=== PATIENT | male | born 1995 | race Caucasian/White ===

== ENCOUNTER 2017-07-02 00:01 | Emergency (ER) | payer OTHER ==
[2017-07-02 00:17] VITALS: BP 146/83; PULSE 95; RESP 16; TEMP 97.6; O2SAT 98
--- NOTE | 2017-07-02 03:10 | PD ---
HPI Chief Complaint: OD/ Ingestion Time Seen by Provider: 00:14 Travel History International Travel<30 days: No Contact w/Intl Traveler<30days: No Traveled to known affect area: No History of Present Illness HPI Patient is a 21-year-old male brought in by EMS after heroin overdose. He was given Narcan and awoke. He says he often uses heroin. He denies any complaints. He is angry he is here. He denies chest pain, fever, chills. He would like to leave. Severity is mild. [facility] Past Medical History Medical History: Denies Significant Hx Diminished Hearing: No Tetanus Vaccination: < 5 Years Past Surgical History Other Surgery: Yes (TO CLOSE LAC TO JAW) Social History Alcohol Use: Yes Tobacco Use: Yes Substance Use: Yes (COKE, HEROIN, MARIJUANA ) Allergies-Medications (Allergen,Severity, Reaction): Coded Allergies: No Known Allergies (Unverified , 07/02/17) Reported Meds & Prescriptions Reported Meds & Active Scripts Active No Active Prescriptions or Reported Medications Review of Systems Except as stated in HPI: all other systems reviewed are Neg General / Constitutional: No: Fever, Chills HENT: No: Headaches, Lightheadedness Cardiovascular: No: Chest Pain or Discomfort Respiratory: No: Shortness of Breath Gastrointestinal: No: Nausea, Vomiting Skin: No Rash, No Change in Pigmentation Neurologic: No: Weakness, Dizziness Physical Exam Narrative GENERAL: Awake and alert, in no acute distress. SKIN: Focused skin assessment warm/dry. HEAD: Atraumatic. Normocephalic. EYES: Pupils equal and round. No scleral icterus. EOMI. ENT: Mucous membranes pink and moist. NECK: Trachea midline. No JVD. CARDIOVASCULAR: Regular rate and rhythm. No murmur appreciated. RESPIRATORY: No accessory muscle use. Clear to auscultation. Breath sounds equal bilaterally. GASTROINTESTINAL: Abdomen soft, non-tender, nondistended. MUSCULOSKELETAL: No obvious deformities. No clubbing. No cyanosis. No edema. NEUROLOGICAL: Awake and alert. No obvious cranial nerve deficits. Motor grossly within normal limits. Normal speech. PSYCHIATRIC: Appropriate mood and affect; insight and judgment normal. Data Data Last Documented VS Vital Signs Date Time Temp Pulse Resp B/P (MAP) Pulse Ox O2 Delivery O2 Flow Rate FiO2 07/02/17 00:17 97.6 95 16 146/83 (104) 98 MDM Medical Decision Making Medical Screen Exam Complete: Yes Emergency Medical Condition: Yes Medical Record Reviewed: Yes Differential Diagnosis heroine overdose vs intoxication vs dehydration Narrative Course Patient is a 21-year-old male brought in by EMS after heroin overdose. He has no complaints. He was given Narcan. He was observed in the emergency department without any further hypoxic episodes. He remained awake and alert. Discharged home. Advised to quit using drugs. Diagnosis Primary Impression: Heroin overdose Qualified Codes: T40.1X1A - Poisoning by heroin, accidental (unintentional), initial encounter Patient Instructions: General Instructions, Opioid Overdose (ED) Additional Instructions: Stop using drugs. Drink plenty of fluids. Return to the ED as needed for any worsening symptoms. Scripts No Active Prescriptions or Reported Meds Disposition: 01 DISCHARGE HOME Condition: Stable Lexy Dyer MD Jul 02, 2017 03:10
== END 2017-07-02 03:17 | disposition home or self-care (01) ==
LOC: NEPE 00:01
DX: T40.1X1A Poisoning by heroin, accidental (unintentional), initial encounter (principal)
CPT/HCPCS: 99281

== ENCOUNTER 2017-07-19 09:24 | Inpatient (IN) | payer MEDICAID, OTHER ==
[~2017-07-19] VITALS: Ht 172.7 cm; Wt 70.1 kg
[2017-07-19] VITALS (7 sets, daily range): BP systolic 110–154; BP diastolic 51–80; PULSE 82–114; RESP 16–20; TEMP 96.6–99.8; O2SAT 93–98
[2017-07-19] MEDS ORDERED: VANCOMYCIN INJ 1,000 MG in SODIUM CHLOR 0.9% 250 ML INJ 250 ML IV STA (09:49)
[2017-07-19] MEDS ORDERED: PIPERACIL-TAZO 4.5 GM PREMIX 100 ML IV STA (09:49)
--- NOTE | 2017-07-19 09:58 | PD ---
HPI Chief Complaint: Injury Time Seen by Provider: 09:48 Travel History International Travel<30 days: No Contact w/Intl Traveler<30days: No Traveled to known affect area: No History of Present Illness HPI This 22-year-old male is complaining of pain in his right foot. 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 He says he went quite deep into his foot took some pulling to get them out of his foot. He says when he got up this morning the foot was quite painful and he has trouble walking on it. He was in the emergency department on July 02 with an overdose of heroin. He admits to drug use but denies recent IV drug use. PFSH Past Medical History Diminished Hearing: No Past Surgical History Other Surgery: Yes (TO CLOSE LAC TO JAW) Social History Alcohol Use: Yes Tobacco Use: Yes Substance Use: Yes (COKE, HEROIN, MARIJUANA ) Allergies-Medications (Allergen,Severity, Reaction): Coded Allergies: No Known Allergies (Unverified , 07/19/17) Reported Meds & Prescriptions Reported Meds & Active Scripts Active No Active Prescriptions or Reported Medications Review of Systems General / Constitutional: Positive: Chills Eyes: No: Diploplia HENT: No: Headaches Cardiovascular: No: Chest Pain or Discomfort, Palpitations Respiratory: No: Cough, Shortness of Breath Gastrointestinal: No: Vomiting, Diarrhea Genitourinary: No: Urgency, Frequency Musculoskeletal: Positive: Pain Skin: No Rash, No Itching Neurologic: No: Weakness Endocrine: No: Heat Intolerance, Cold Intolerance Hematologic/Lymphatic: No: Easy Bruising Physical Exam Narrative GENERAL: Disheveled male SKIN: Focused skin assessment warm/dry. Track hurley present. Multiple erythematous pustular lesions which he says are from moving fiberglass HEAD: Atraumatic. Normocephalic. EYES: Pupils equal and round. No scleral icterus. No injection or drainage. ENT: No nasal bleeding or discharge. Mucous membranes pink and moist. NECK: Trachea midline. No JVD. CARDIOVASCULAR: Regular rate and rhythm. No murmur appreciated. RESPIRATORY: No accessory muscle use. Clear to auscultation. Breath sounds equal bilaterally. GASTROINTESTINAL: Abdomen soft, non-tender, nondistended. Hepatic and splenic margins not palpable. MUSCULOSKELETAL: No obvious deformities. No clubbing. No cyanosis. No edema. Examining the right foot there are multiple puncture wounds visible. There are quite tender. He has erythema and lymphangitis extending up the foot NEUROLOGICAL: Awake and alert. No obvious cranial nerve deficits. Motor grossly within normal limits. Normal speech. PSYCHIATRIC: Anxious, judgment is limited Data Data Last Documented VS Vital Signs Date Time Temp Pulse Resp B/P (MAP) Pulse Ox O2 Delivery O2 Flow Rate FiO2 07/19/17 11:12 97 Room Air 07/19/17 09:30 99.8 114 16 154/80 (104) Orders Orders Foot, Complete ([id number]) (07/19/17 09:49) Sepsis Workup Initiated (07/19/17 ) Complete Blood Count With Diff (07/19/17 09:49) Comprehensive Metabolic Panel (07/19/17 09:49) Lactic Acid Sepsis Protocol (07/19/17 09:49) Urinalysis - C+S If Indicated (07/19/17 09:49) Blood Culture (07/19/17 09:49) Wound Culture And Gram Stain (07/19/17 09:49) Chest, Single Ap (07/19/17 09:49) Ecg Monitoring (07/19/17 09:49) Iv Access Insert/Monitor (07/19/17 09:49) Oximetry (07/19/17 09:49) Oxygen Administration (07/19/17 09:49) Piperacil-Tazo 4.5 Gm Premix (Zosyn 4.5 (07/19/17 09:49) Vancomycin Inj (Vancomycin Inj) (07/19/17 09:49) Lidocaine 2% Inj (Xylocaine 2% Inj) (07/19/17 11:15) Labs Laboratory Tests Test 07/19/17 10:35 White Blood Count 14.4 TH/MM3 Red Blood Count 4.88 MIL/MM3 Hemoglobin 14.9 GM/DL Hematocrit 44.1 % Mean Corpuscular Volume 90.4 FL Mean Corpuscular Hemoglobin 30.5 PG Mean Corpuscular Hemoglobin Concent 33.7 % Red Cell Distribution Width 13.1 % Platelet Count 293 TH/MM3 Mean Platelet Volume 7.8 FL Neutrophils (%) (Auto) 72.9 % Lymphocytes (%) (Auto) 12.9 % Monocytes (%) (Auto) 12.3 % Eosinophils (%) (Auto) 1.1 % Basophils (%) (Auto) 0.8 % Neutrophils # (Auto) 10.4 TH/MM3 Lymphocytes # (Auto) 1.9 TH/MM3 Monocytes # (Auto) 1.8 TH/MM3 Eosinophils # (Auto) 0.2 TH/MM3 Basophils # (Auto) 0.1 TH/MM3 CBC Comment DIFF FINAL Differential Comment Blood Urea Nitrogen 9 MG/DL Creatinine 1.00 MG/DL Random Glucose 102 MG/DL Total Protein 7.9 GM/DL Albumin 3.8 GM/DL Calcium Level 9.1 MG/DL Alkaline Phosphatase 88 U/L Aspartate Amino Transf (AST/SGOT) 36 U/L Alanine Aminotransferase (ALT/SGPT) 67 U/L Total Bilirubin 0.9 MG/DL Sodium Level 135 MEQ/L Potassium Level 3.4 MEQ/L Chloride Level 100 MEQ/L Carbon Dioxide Level 29.8 MEQ/L Anion Gap 5 MEQ/L Estimat Glomerular Filtration Rate 95 ML/MIN Lactic Acid Level 1.0 mmol/L MDM Medical Decision Making Medical Screen Exam Complete: Yes Emergency Medical Condition: Yes Medical Record Reviewed: Yes Differential Diagnosis Differential includes cellulitis, lymphangitis, sepsis Narrative Course IND of the puncture wounds has been done and some pus has been obtained. Patient has temp of 99.8 pulse rate of 114. He has lymphangitis. Diagnosis Primary Impression: Cellulitis of foot Scripts No Active Prescriptions or Reported Meds Librado Bowling MD Jul 19, 2017 09:58
--- NOTE | 2017-07-19 10:29 | RADRPT ---
EXAM DATE/TIME: 07/19/2017 09:57 [facility] COMPARISON: No previous studies available for comparison. INDICATIONS : Fever. Possible foot infection after stepping on multiple nails yesterday. MEDICAL HISTORY : None. SURGICAL HISTORY : None. ENCOUNTER: Initial ACUITY: 2 days PAIN SCORE: 0/10 LOCATION: chest FINDINGS: A single view of the chest demonstrates the lungs to be symmetrically aerated without evidence of mas s, infiltrate or effusion. The cardiomediastinal contours are unremarkable. Osseous structures are intact. CONCLUSION: The lungs are clear. J Luis Wilkerson MD on July 19, 2017 at 10:27 Board Certified Radiologist. This report was verified electronically.
--- NOTE | 2017-07-19 10:35 | RADRPT ---
EXAM DATE/TIME: 07/19/2017 09:57 [facility] COMPARISON: No previous studies available for comparison. INDICATIONS : Right foot pain & possible foot infection after stepping on multiple nails yesterday. MEDICAL HISTORY : None. SURGICAL HISTORY : None. ENCOUNTER: Initial ACUITY: 2 days PAIN SCORE: 10/10 LOCATION: Right plantar surface foot FINDINGS: Three view examination of the right foot demonstrates no soft tissue swelling, dislocation, or fractu re. No evidence of periosteal reaction. The tarsal bones appear intact. The interphalangeal and m etatarsophalangeal joints are intact. The calcaneus is intact. Bony mineralization is normal. No r adiopaque foreign bodies seen. CONCLUSION: Negative examination. J Luis Wilkerson MD on July 19, 2017 at 10:32 Board Certified Radiologist. This report was verified electronically.
[2017-07-19 10:50] LABS: AUTOMATED NEUTROPHIL # 10.4 TH/MM3 (1.8-7.7); BASOPHIL # 0.1 TH/MM3 (0-0.2); BASOPHIL % 0.8 % (0.0-2.0); EOSINOPHIL # 0.2 TH/MM3 (0-0.4); EOSINOPHIL % 1.1 % (0.0-4.0); HEMATOCRIT 44.1 % (39.0-51.0); HEMOGLOBIN 14.9 GM/DL (13.0-17.0); LYMPH % 12.9 % (9.0-44.0); LYMPHOCYTE # 1.9 TH/MM3 (1.0-4.8); MEAN CELL VOLUME 90.4 FL (80.0-100.0); MEAN CORPUSCULAR HEMOGLOBIN 30.5 PG (27.0-34.0); MEAN CORPUSCULAR HGB CONC 33.7 % (32.0-36.0); MEAN PLATELET VOLUME 7.8 FL (7.0-11.0); MONO % 12.3 % (0.0-8.0); MONOCYTE # 1.8 TH/MM3 (0-0.9); NEUT % 72.9 % (16.0-70.0); PLATELET COUNT 293 TH/MM3 (150-450); RED BLOOD COUNT 4.88 MIL/MM3 (4.50-5.90); RED CELL DISTRIBUTION WIDTH 13.1 % (11.6-17.2); WHITE BLOOD COUNT 14.4 TH/MM3 (4.0-11.0)
[2017-07-19 10:57] LABS: CHLORIDE 100 MEQ/L (98-107); SODIUM (NA) 135 MEQ/L (136-145)
[2017-07-19 11:00] LABS: ALBUMIN 3.8 GM/DL (3.4-5.0); BICARBONATE 29.8 MEQ/L (21.0-32.0); CALCIUM 9.1 MG/DL (8.5-10.1); GLUCOSE,RANDOM 102 MG/DL (74-106)
[2017-07-19 11:01] LABS: BLOOD UREA NITROGEN 9 MG/DL (7-18)
[2017-07-19 11:04] LABS: ALT (GPT) 67 U/L (9-52); AST (GOT) 36 U/L (15-39); GLOMERULAR FILTRATION RATE 95 ML/MIN (>89)
[2017-07-19 11:05] LABS: TOTAL BILIRUBIN ADULT 0.9 MG/DL (0.2-1.0); TOTAL PROTEIN 7.9 GM/DL (6.4-8.2)
[2017-07-19 11:06] LABS: ALKALINE PHOSPHATASE 88 U/L (45-117)
[2017-07-19] MEDS ORDERED: LIDOCAINE HCL 2% 50 ML VIAL NERV BLOCK ONE (11:15)
[2017-07-19] MEDS ORDERED: TETANUS/DIPHTHERIA TOXOID ADULT 0.5 ML VIAL IM ONE (11:30)
--- NOTE | 2017-07-19 11:30 | PD ---
Physical Exam Date Seen by Provider: Jul 19, 2017 Narrative I was asked to perform an incision and drainage of this patient's right foot. There were 2 areas of questionable abscesses. There was no spontaneous draining. The largest of the areas was under the 2nd metatarsal. INCISION AND DRAINAGE OF ABSCESS: The area located on plantar aspects under fifth metatarsal was prepped and was sterilely draped. A subcutaneous wheal of 2% Xylocaine without epinephrine with a total number 1 mL was used to anesthetize the area properly. A number 11 scalpel was used to make a 0.5-cm incision across the area of the abscess. The abscess was drained, complex loculations were broken down, and irrigated with normal saline. Cultures were obtained. Quarter inch iodoform packing was placed in the wound. Sterile dressing applied. Patient advised to have packing removed in two days. INCISION AND DRAINAGE OF ABSCESS: The area plantar aspect of 2nd metatarsal was prepped and was sterilely draped. A subcutaneous wheal of 2 % Xylocaine without epinephrine with a total number 1 mL was used to anesthetize the area properly. A number 11 scalpel was used to make a 1-cm incision across the area of the abscess. There was no fluid expression here. This was a rather thick callus. I was able to remove the remnants from a nail (dirt vs rust). Data Data Last Documented VS Vital Signs Date Time Temp Pulse Resp B/P (MAP) Pulse Ox O2 Delivery O2 Flow Rate FiO2 07/19/17 11:12 98.7 98 16 114/54 (74) 97 Room Air Orders Orders Foot, Complete ([id number]) (07/19/17 09:49) Sepsis Workup Initiated (07/19/17 ) Complete Blood Count With Diff (07/19/17 09:49) Comprehensive Metabolic Panel (07/19/17 09:49) Lactic Acid Sepsis Protocol (07/19/17 09:49) Urinalysis - C+S If Indicated (07/19/17 09:49) Blood Culture (07/19/17 09:49) Wound Culture And Gram Stain (07/19/17 09:49) Chest, Single Ap (07/19/17 09:49) Ecg Monitoring (07/19/17 09:49) Iv Access Insert/Monitor (07/19/17 09:49) Oximetry (07/19/17 09:49) Oxygen Administration (07/19/17 09:49) Piperacil-Tazo 4.5 Gm Premix (Zosyn 4.5 (07/19/17 09:49) Vancomycin Inj (Vancomycin Inj) (07/19/17 09:49) Lidocaine 2% Inj (Xylocaine 2% Inj) (07/19/17 11:15) Tetanus/Diphtheria Tox Adult (Tetanus/Di (07/19/17 11:30) Admit Order (Ed Use Only) (07/19/17 11:29) Labs Laboratory Tests Test 07/19/17 10:35 White Blood Count 14.4 TH/MM3 Red Blood Count 4.88 MIL/MM3 Hemoglobin 14.9 GM/DL Hematocrit 44.1 % Mean Corpuscular Volume 90.4 FL Mean Corpuscular Hemoglobin 30.5 PG Mean Corpuscular Hemoglobin Concent 33.7 % Red Cell Distribution Width 13.1 % Platelet Count 293 TH/MM3 Mean Platelet Volume 7.8 FL Neutrophils (%) (Auto) 72.9 % Lymphocytes (%) (Auto) 12.9 % Monocytes (%) (Auto) 12.3 % Eosinophils (%) (Auto) 1.1 % Basophils (%) (Auto) 0.8 % Neutrophils # (Auto) 10.4 TH/MM3 Lymphocytes # (Auto) 1.9 TH/MM3 Monocytes # (Auto) 1.8 TH/MM3 Eosinophils # (Auto) 0.2 TH/MM3 Basophils # (Auto) 0.1 TH/MM3 CBC Comment DIFF FINAL Differential Comment Blood Urea Nitrogen 9 MG/DL Creatinine 1.00 MG/DL Random Glucose 102 MG/DL Total Protein 7.9 GM/DL Albumin 3.8 GM/DL Calcium Level 9.1 MG/DL Alkaline Phosphatase 88 U/L Aspartate Amino Transf (AST/SGOT) 36 U/L Alanine Aminotransferase (ALT/SGPT) 67 U/L Total Bilirubin 0.9 MG/DL Sodium Level 135 MEQ/L Potassium Level 3.4 MEQ/L Chloride Level 100 MEQ/L Carbon Dioxide Level 29.8 MEQ/L Anion Gap 5 MEQ/L Estimat Glomerular Filtration Rate 95 ML/MIN Lactic Acid Level 1.0 mmol/L [facility] Supervised Visit with CARMELA: Yes Diagnosis Primary Impression: Cellulitis of foot Scripts No Active Prescriptions or Reported Meds Yessy Coe Jul 19, 2017 11:30
[2017-07-19] MEDS ORDERED: SODIUM CHLOR 0.9% 1000 ML INJ 1,000 ML IV SCH (13:00)
[2017-07-19] MEDS ORDERED: Vancomycin Consult Pharmacy 1 EA OTHER SCH (13:15)
[2017-07-19] MEDS ORDERED: ACETAMINOPHEN 325 MG TAB PO PRN (13:15)
[2017-07-19] MEDS ORDERED: ONDANSETRON HCL 4 MG/2 ML VIAL IVP PRN (13:15)
[2017-07-19] MEDS ORDERED: NALOXONE HCL 0.4 MG/ML AMP IV PUSH PRN (13:15)
[2017-07-19] MEDS ORDERED: SODIUM CHLORIDE 0.9% FLUSH 10 ML FLUSH IV FLUSH PRN (13:15)
[2017-07-19] MEDS ORDERED: MAGNESIUM HYDROXIDE SUSP 30 ML CUP PO PRN (13:15)
--- NOTE | 2017-07-19 13:20 | HHI.HP ---
[facility] Service [place] [facility] Primary Care Physician No Primary Care Physician Admission Diagnosis CELLULITIS OF FOOT Diagnoses: Chief Complaint: Right foot swelling Travel History International Travel<30 Days: No Contact w/Intl Traveler <30 Da: No Traveled to Known Affected Are: No Sepsis Criteria SIRS Criteria (2 or more): Heart rate over 90, WBC > 61245, < 4000 or > 10% bands Sepsis Criteria (SIRS+source): Infect source susp/known Criteria Outcome: Meets sepsis criteria History of Present Illness This patient is a 22-year-old gentleman with a history of intravenous drug use and current history of heroin dependency. Patient comes into the emergency room complaining of right foot pain and swelling. Several days ago he stepped on nail and he thinks it went very deep. He pulled the nail out noticed that his foot began to swell and he had more pain. Came to the emergency room for further evaluation. Patient's pain is quite severe and improved with a lidocaine nerve block which was used for an I&D done in the emergency room. Patient does appear septic and has been admitted to the hospital for further evaluation and treatment Review of Systems Constitutional: COMPLAINS OF: Chills, Dizziness, Night Sweats, DENIES: Diaphoretic episodes, Fatigue, Fever, Weight gain, Weight loss, Change in appetite Endocrine: DENIES: Heat/cold intolerance, Polydipsia, Polyuria, Polyphagia Eyes: DENIES: Blurred vision, Diplopia, Eye inflammation, Eye pain, Vision loss , Photosensitivity, Double Vision Ears, nose, mouth, throat: DENIES: Tinnitus, Hearing loss, Vertigo, Nasal discharge, Oral lesions, Throat pain, Hoarseness, Ear Pain, Running Nose, Epistaxis, Sinus Pain, Toothache, Odynophagia Respiratory: DENIES: Apneas, Cough, Snoring, Wheezing, Hemoptysis, Sputum production, Shortness of breath Cardiovascular: DENIES: Chest pain, Palpitations, Syncope, Dyspnea on Exertion , PND, Lower Extremity Edema, Orthopnea, Claudication Gastrointestinal: DENIES: Abdominal pain, Black stools, Bloody stools, Constipation, Diarrhea, Nausea, Vomiting, Difficulty Swallowing, Anorexia Genitourinary: DENIES: Sexual dysfunction, Urinary frequency, Urinary incontinence, Urgency, Hematuria, Dysuria, Nocturia, Penile Discharge, Testicular Pain, Testicular Swelling Musculoskeletal: COMPLAINS OF: Joint Swelling, DENIES: Joint pain, Muscle aches , Stiffness, Back pain, Neck pain Integumentary: DENIES: Abnormal pigmentation, Nail changes, Pruritus, Rash Hematologic/lymphatic: DENIES: Bruising, Lymphadenopathy Immunologic/allergic: DENIES: Eczema, Urticaria Neurologic: DENIES: Abnormal gait, Headache, Localized weakness, Paresthesias, Seizures, Speech Problems, Tremor, Poor Balance Psychiatric: DENIES: Anxiety, Confusion, Mood changes, Depression, Hallucinations, Agitation, Suicidal Ideation, Homicidal Ideation, Delusions Except as stated in HPI: all other systems reviewed are Neg Past Family Social History Past Medical History Heroin dependence Past Surgical History Jaw surgery Reported Medications denies Allergies: Coded Allergies: No Known Allergies (Unverified , 07/19/17) Active Ordered Medications Reviewed in the EMR Family History Denies does not know Social History Uses heroin, marijuana, lives with a roommate 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 Cool and dry. HEAD: Atraumatic. Normocephalic. No temporal or scalp tenderness. EYES: Pupils equal round and reactive. Extraocular motions intact. No scleral icterus. No injection or drainage. ENT: Nose without bleeding, purulent drainage or septal hematoma. Throat without erythema, tonsillar hypertrophy or exudate. Uvula midline. Airway patent. NECK: Trachea midline. No JVD or lymphadenopathy. Supple, nontender, no meningeal signs. CARDIOVASCULAR: Regular rate and rhythm without murmurs, gallops, or rubs. RESPIRATORY: Clear to auscultation. Breath sounds equal bilaterally. No wheezes , rales, or rhonchi. GASTROINTESTINAL: Abdomen soft, non-tender, nondistended. No hepato-splenomegaly , or palpable masses. No guarding. MUSCULOSKELETAL: Right foot swelling with puncture wounds and fluctuant changes , other 3 extremities without clubbing, cyanosis, or edema. No joint tenderness , effusion, or edema noted. No calf tenderness. Negative Homans sign bilaterally. NEUROLOGICAL: Awake and alert. Cranial nerves II through XII intact. Motor and sensory grossly within normal limits. Five out of 5 muscle strength in all muscle groups. Normal speech. Laboratory Laboratory Tests Test 07/19/17 10:35 White Blood Count 14.4 Red Blood Count 4.88 Hemoglobin 14.9 Hematocrit 44.1 Mean Corpuscular Volume 90.4 Mean Corpuscular Hemoglobin 30.5 Mean Corpuscular Hemoglobin Concent 33.7 Red Cell Distribution Width 13.1 Platelet Count 293 Mean Platelet Volume 7.8 Neutrophils (%) (Auto) 72.9 Lymphocytes (%) (Auto) 12.9 Monocytes (%) (Auto) 12.3 Eosinophils (%) (Auto) 1.1 Basophils (%) (Auto) 0.8 Neutrophils # (Auto) 10.4 Lymphocytes # (Auto) 1.9 Monocytes # (Auto) 1.8 Eosinophils # (Auto) 0.2 Basophils # (Auto) 0.1 CBC Comment DIFF FINAL Differential Comment Blood Urea Nitrogen 9 Creatinine 1.00 Random Glucose 102 Total Protein 7.9 Albumin 3.8 Calcium Level 9.1 Alkaline Phosphatase 88 Aspartate Amino Transf (AST/SGOT) 36 Alanine Aminotransferase (ALT/SGPT) 67 Total Bilirubin 0.9 Sodium Level 135 Potassium Level 3.4 Chloride Level 100 Carbon Dioxide Level 29.8 Anion Gap 5 Estimat Glomerular Filtration Rate 95 Lactic Acid Level 1.0 Date/Time Source Procedure Growth Status 07/19/17 10:35 Blood Peripheral Aerobic Blood Culture Pending Received 07/19/17 10:35 Blood Peripheral Anaerobic Blood Culture Pending Received 07/19/17 11:15 Wound Foot Gram Stain Pending Received 07/19/17 11:15 Wound Foot Wound Culture Pending Received Result Diagram: 07/19/17 1035 07/19/17 1035 Imaging Last Impressions Foot X-Ray 07/19/17 6014 Signed Impressions: Service Date/Time: Wednesday, July 19, 2017 09:57 - CONCLUSION: Negative examination. J Luis Wilkerson MD Chest X-Ray 07/19/17 0949 Signed Impressions: Service Date/Time: Wednesday, July 19, 2017 09:57 - CONCLUSION: The lungs are clear. J Luis Wilkerson MD Septic Shock Reassessment Septic shock perfusion: reassessment completed Caprini VTE Risk Assessment Caprini VTE Risk Assessment: No/Low Risk (score <= 1) Caprini Risk Assessment Model Point Value = 1 Point Value = 2 Point Value = 3 Point Value = 5 Age 41-60 Minor surgery BMI > 25 kg/m2 Swollen legs Varicose veins or History of unexplained or recurrent spontaneous Oral contraceptives or hormone replacement Sepsis (< 1 month) Serious lung disease, including pneumonia (< 1 month) Abnormal pulmonary function Acute myocardial infarction Congestive heart failure (< 1 month) History of inflammatory bowel disease Medical patient at bed rest Age 61-74 Arthroscopic surgery Major open surgery (> 45 min) Laparoscopic surgery (> 45 min) Malignancy Confined to bed (> 72 hours) Immobilizing plaster cast Central venous access Age >= 75 History of VTE Family history of VTE Factor V Leiden Prothrombin [id number] Lupus anticoagulant Anticardiolipin antibodies Elevated serum homocysteine Heparin-induced thrombocytopenia Other congenital or acquired thrombophilia Stroke (< 1 month) Elective arthroplasty Hip, pelvis, or leg fracture Acute spinal cord injury (< 1 month) Prophylaxis Regimen Total Risk Factor Score Risk Level Prophylaxis Regimen 0-1 Low Early ambulation 2 Moderate Order ONE of the following: *Sequential Compression Device (SCD) *Heparin 5000 units SQ BID 3-4 Higher Order ONE of the following medications: *Heparin 5000 units SQ TID *Enoxaparin/Lovenox 40 mg SQ daily (WT < 150 kg, CrCl > 30 mL/min) *Enoxaparin/Lovenox 30 mg SQ daily (WT < 150 kg, CrCl > 10-29 mL/min) *Enoxaparin/Lovenox 30 mg SQ BID (WT < 150 kg, CrCl > 30 mL/min) AND/OR *Sequential Compression Device (SCD) 5 or more Highest Order ONE of the following medications: *Heparin 5000 units SQ TID (Preferred with Epidurals) *Enoxaparin/Lovenox 40 mg SQ daily (WT < 150 kg, CrCl > 30 mL/min) *Enoxaparin/Lovenox 30 mg SQ daily (WT < 150 kg, CrCl > 10-29 mL/min) *Enoxaparin/Lovenox 30 mg SQ BID (WT < 150 kg, CrCl > 30 mL/min) AND *Sequential Compression Device (SCD) Assessment and Plan Problem List: (1) Sepsis ICD Code: A41.9 - Sepsis, unspecified organism Plan: Likely due to cellulitis versus abscess Continue follow-up for CT results, and blood cultures, for further podiatry management and continue IV antibiotics (Zosyn and vancomycin (2) Hypokalemia ICD Code: E87.6 - Hypokalemia Plan: Continue replacement and follow (3) Heroin abuse ICD Code: F11.10 - Opioid abuse, uncomplicated Plan: Watch for signs of withdrawal Ativan as needed Continue hydrocodone (4) Cellulitis of foot ICD Code: L03.119 - Cellulitis of unspecified part of limb Status: Acute Plan: Status post puncture wound, status post tetanus in ED Continue IV antibiotics Code Status full code Discussed Condition With patient, er md Physician Certification 2 Midnight Certification Type: Admission for Inpatient Services Order for Inpatient Services The services are ordered in accordance with Medicare regulations or non- Medicare payer requirements, as applicable. In the case of services not specified as inpatient-only, they are appropriately provided as inpatient services in accordance with the 2-midnight benchmark. Estimated LOS (days): 2 2 days is the estimated time the patient will need to remain in the hospital, assuming treatment plan goals are met and no additional complications. Post-Hospital Plan: Home Leidy Silva MD Jul 19, 2017 13:20
[2017-07-19] MEDS ORDERED: IOHEXOL 350 MG/ML 10 ML VIAL (for RAD DIAG) IVCONTRAST ONE (14:18)
[2017-07-19] MEDS: POTASSIUM CHLORIDE 20 MEQ CONTROLLED RELEASE TAB PO SCH (14:36)
--- NOTE | 2017-07-19 16:38 | PD.POD.CON ---
Patient Intake Chief Complaint Right foot pain Consult Requested by Admitting medical team Reason for Consult Right foot puncture wound possible abscess cellulitis Primary Care Physician No Primary Care Physician History of Present Illness 22-year-old male who stepped on a nail, patient had increasing redness and pain incision and drainage to place in the ED resulting in some decrease in discomfort, so currently on seeing the patient bedside foot pain appears to be improved Coded Allergies: No Known Allergies (Unverified , 07/19/17) Preferred Language to Discuss: Georgian Barriers to Learning: None Vital Signs Date Time Temp Pulse Resp B/P (MAP) Pulse Ox O2 Delivery O2 Flow Rate FiO2 07/19/17 12:28 07/19/17 12:09 95 16 110/51 (70) 95 07/19/17 12:00 99.4 82 20 133/63 (86) 98 07/19/17 11:12 98.7 98 16 114/54 (74) 97 Room Air 07/19/17 11:12 97 Room Air 07/19/17 09:30 99.8 114 16 154/80 (104) 97 Pain score: 3 Past, Family & Social History Past Medical History [facility] Reviewed: Yes Social History Social History: Other 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 Neurovascular status intact calf nontender nondistended Left lower extremity free from any pathology Lab and Radiology Results Radiology Last Impressions Foot X-Ray 07/19/17948 Signed Impressions: Service Date/Time: Wednesday, July 19, 2017 09:57 - CONCLUSION: Negative examination. J Luis Wilkerson MD Chest X-Ray 07/19/17948 Signed Impressions: Service Date/Time: Wednesday, July 19, 2017 09:57 - CONCLUSION: The lungs are clear. J Luis Wilkerson MD Assessment/Plan Problem List: (1) Puncture wound of foot, right Status: Acute (2) Cellulitis of foot Status: Acute Plan: Wound culture appears to be ordered and pending. X-rays negative, CT final read is pending however I do not see any obvious signs of abscess, no gas in the tissue, no foreign body My recommendations to keep packing in for another 12-18 hours, compress and elevate foot and ankle, reevaluate tomorrow no surgery planned. Continue IV antibiotics possible transitioning to by mouth antibiotics if bacteria culture and sensitivity permits. Reviewed case with medicine, spoke with nursing. Thank you for this consultation Results CBC/BMP: 07/19/17 1035 07/19/17 1035 Micro/ID Microbiology Date/Time Source Procedure Growth Status 07/19/17 10:35 Blood Peripheral Aerobic Blood Culture Pending Received 07/19/17 10:35 Blood Peripheral Anaerobic Blood Culture Pending Received 07/19/17 11:15 Wound Foot Gram Stain Pending Received 07/19/17 11:15 Wound Foot Wound Culture Pending Received Problem Qualifiers (1) Puncture wound of foot, right: Qualified Codes: S91.331D - Puncture wound without foreign body, right foot, subsequent encounter Elton Burt DPM Jul 19, 2017 16:38
--- NOTE | 2017-07-19 16:51 | RADRPT ---
EXAM DATE/TIME: 07/19/2017 14:05 [facility] COMPARISON: No previous studies available for comparison. INDICATIONS : Right foot pain and swelling, stepped on nails yesterday. IV CONTRAST: 85 cc Omnipaque 350 (iohexol) IV RADIATION DOSE: 6.16 CTDIvol (mGy) MEDICAL HISTORY : Substance abuse. SURGICAL HISTORY : None. ENCOUNTER: Initial ACUITY: 2 days PAIN SCALE: 10/10 LOCATION: Right foot TECHNIQUE: Volumetric scanning of the foot was performed. Using automated exposure control and adjustment of th e mA and/or kV according to patient size, radiation dose was kept as low as reasonably achievable to obtain optimal diagnostic quality images. DICOM format image data is available electronically for re view and comparison. FINDINGS: BONES: No evidence of fracture. Alignment is within normal limits. JOINTS: No evidence of joint narrowing or effusion. SOFT TISSUES: Muscles and neurovascular structures are grossly unremarkable. No evidence of mass, organized fluid c ollection, or foreign body. However, there is fluid around the midportion of the flexor hallux longus tendon just proximal to where it crosses laterally to the flexor digitorum tendon CONCLUSION: 1. No fracture or radiopaque foreign body. 2. Fluid in the tendon sheath in the midportion of the flexor hallux longus. This can be a normal fin ding although some degree of tendinopathy cannot be excluded. No regional trauma. Urbano Sweet MD on July 19, 2017 at 16:36 Board Certified Radiologist. This report was verified electronically.
[2017-07-19] MEDS: PIPERACIL-TAZO 4.5 GM PREMIX 100 ML IV SCH (16:58)
[2017-07-19] MEDS: VANCOMYCIN INJ 1,250 MG in SODIUM CHLOR 0.9% 250 ML INJ 250 ML IV SCH (22:34)
[2017-07-19] MEDS: SODIUM CHLORIDE 0.9% FLUSH 10 ML FLUSH IV FLUSH SCH (22:34)
[2017-07-20] VITALS: BP 118/55; PULSE 79; RESP 20; TEMP 98.5; O2SAT 96
[2017-07-20] MEDS: PIPERACIL-TAZO 4.5 GM PREMIX 100 ML IV SCH ×3 (02:03→17:57)
[2017-07-20 06:43] LABS: AUTOMATED NEUTROPHIL # 5.9 TH/MM3 (1.8-7.7); BASOPHIL # 0.1 TH/MM3 (0-0.2); BASOPHIL % 0.6 % (0.0-2.0); EOSINOPHIL # 0.3 TH/MM3 (0-0.4); EOSINOPHIL % 3.1 % (0.0-4.0); HEMOGLOBIN 13.9 GM/DL (13.0-17.0); LYMPH % 20.7 % (9.0-44.0); MEAN CELL VOLUME 90.3 FL (80.0-100.0); MEAN CORPUSCULAR HEMOGLOBIN 30.5 PG (27.0-34.0); MEAN CORPUSCULAR HGB CONC 33.8 % (32.0-36.0); MEAN PLATELET VOLUME 8.4 FL (7.0-11.0); MONO % 14.4 % (0.0-8.0); MONOCYTE # 1.4 TH/MM3 (0-0.9); NEUT % 61.2 % (16.0-70.0); PLATELET COUNT 266 TH/MM3 (150-450); RED BLOOD COUNT 4.54 MIL/MM3 (4.50-5.90); RED CELL DISTRIBUTION WIDTH 12.9 % (11.6-17.2); WHITE BLOOD COUNT 9.7 TH/MM3 (4.0-11.0)
[2017-07-20 06:57] LABS: BICARBONATE 28.5 MEQ/L (21.0-32.0); CALCIUM 8.6 MG/DL (8.5-10.1)
[2017-07-20 07:50] VITALS: BP 149/78; PULSE 93; RESP 20; TEMP 98.7; O2SAT 97
[2017-07-20] MEDS: POTASSIUM CHLORIDE 20 MEQ CONTROLLED RELEASE TAB PO SCH (08:16)
[2017-07-20] MEDS: SODIUM CHLORIDE 0.9% FLUSH 10 ML FLUSH IV FLUSH SCH ×2 (08:16→21:00)
[2017-07-20] MEDS: ACETAMINOPHEN/HYDROcodone 325 MG/7.5 MG TAB PO PRN ×3 (11:05→23:56)
--- NOTE | 2017-07-20 11:42 | HHI.PR ---
Subjective Remarks Patient seen and evaluated today in follow-up for right foot infection. Podiatry consult appreciated. Patient tolerated antibiotics. Patient instructed on ambulation safety with physical therapy Blood cultures negative Objective Vitals Vital Signs Date Time Temp Pulse Resp B/P (MAP) Pulse Ox O2 Delivery O2 Flow Rate FiO2 07/20/17 07:50 98.7 93 20 149/78 (101) 97 07/20/17 00:00 98.5 79 20 118/55 (76) 96 07/19/17 20:00 98.1 83 20 123/57 (79) 93 07/19/17 18:34 84 118/62 (80) 07/19/17 15:50 96.6 101 20 154/72 (99) 97 07/19/17 12:28 07/19/17 12:09 95 16 110/51 (70) 95 07/19/17 12:00 99.4 82 20 133/63 (86) 98 I/O 07/19/17 07/19/17 07/19/17 07/20/17 07/20/17 07/20/17 07:00 15:00 23:00 07:00 15:00 23:00 Intake Total 250 ml 784 ml 470 ml Output Total 500 ml Balance 250 ml 784 ml -30 ml Intake Oral 684 ml 120 ml IV Total 250 ml 100 ml 350 ml Output Urine Total 500 ml Result Diagram: 07/20/17 0550 07/20/17 0550 Imaging Last Impressions Foot X-Ray 07/19/17 0949 Signed Impressions: Service Date/Time: Wednesday, July 19, 2017 09:57 - CONCLUSION: Negative examination. J Luis Wilkerson MD Chest X-Ray 07/19/17 0949 Signed Impressions: Service Date/Time: Wednesday, July 19, 2017 09:57 - CONCLUSION: The lungs are clear. J Luis Wilkerson MD Lower Extremity CT 07/19/17 0000 Signed Impressions: Service Date/Time: Wednesday, July 19, 2017 14:05 - CONCLUSION: 1. No fracture or radiopaque foreign body. 2. Fluid in the tendon sheath in the midportion of the flexor hallux longus. This can be a normal finding although some degree of tendinopathy cannot be excluded. No regional trauma. Urbano Sweet MD Objective Remarks GENERAL: This is a well-nourished, well-developed patient, in no apparent distress. CARDIOVASCULAR: Regular rate and rhythm without murmurs, gallops, or rubs. RESPIRATORY: Clear to auscultation. Breath sounds equal bilaterally. No wheezes , rales, or rhonchi. GASTROINTESTINAL: Abdomen soft, non-tender, nondistended. Normal active bowel sounds MUSCULOSKELETAL: Right foot bandaged dressed, decreased edema, other 3 extremities without clubbing, cyanosis, or edema. NEURO: Alert & Oriented x4 to person, place, time, situation. Moves all ext x4 A/P Problem List: (1) Sepsis ICD Code: A41.9 - Sepsis, unspecified organism Plan: Resolved, secondary to cellulitis Blood cultures negative so far Continue vancomycin and Zosyn for another 24 hours then likely discharge on oral antibiotic (2) Hypokalemia ICD Code: E87.6 - Hypokalemia Plan: Resolved (3) Heroin abuse ICD Code: F11.10 - Opioid abuse, uncomplicated Plan: Watch for signs of withdrawal Ativan as needed Continue hydrocodone (4) Cellulitis of foot ICD Code: L03.119 - Cellulitis of unspecified part of limb Status: Acute Plan: Status post puncture wound, status post tetanus in ED Continue IV antibiotics Discharge Planning Likely discharge in a.m. on oral antibiotics Leidy Silva MD Jul 20, 2017 11:42
[2017-07-20 11:50] VITALS: BP 140/78; PULSE 81; RESP 20; TEMP 97.8; O2SAT 98
[2017-07-20] MEDS: VANCOMYCIN INJ 1,250 MG in SODIUM CHLOR 0.9% 250 ML INJ 250 ML IV SCH ×2 (12:54→23:52)
[2017-07-20 15:50] VITALS: BP 115/73; PULSE 55; RESP 20; TEMP 97.8; O2SAT 100
[2017-07-20 17:33] LABS: BILIRUBIN, URINE NEG (NEG); BLOOD, URINE NEG (NEG); GLUCOSE,URINE NEG (NEG); KETONE, URINE NEG (NEG); NITRITE,URINE NEG (NEG); URINE COLOR YELLOW (YELLW/STRAW); URINE LEUKOCYTE ESTERASE NEG (NEG)
[2017-07-20] MEDS ORDERED: GADODIAMIDE PF 287 MG/ML 5 ML VIAL (for RAD MRI) IVCONTRAST ONE (17:36)
[2017-07-20 17:56] LABS: SQUAMOUS EPITHELIAL CELL URINE 0-5 /hpf (0-5); WBC, URINE 0-2 /hpf (0-5)
--- NOTE | 2017-07-20 18:12 | RADRPT ---
EXAM DATE/TIME: 07/20/2017 17:17 [facility] COMPARISON: No previous studies available for comparison. INDICATIONS : Osteomyelitis. Right foot pain. Patient stepped on a nail two days ago. CONTRAST: 13 cc Omniscan (gadodiamide) IV MEDICAL HISTORY : Hepatitis C. Heroin dependency. SURGICAL HISTORY : Jaw surgery. ENCOUNTER: Initial ACUITY: 1 day PAIN SCORE: 5/10 LOCATION: Right foot. TECHNIQUE: Multiplanar, multisequence MRI examination was performed without contrast and after the intravenous a dministration of gadolinium. FINDINGS: BONE/CARTILAGE: Bone marrow signal is homogeneous. Articular cartilage signal is within normal limits. TENDONS: All of the visualized tendons are intact. MISCELLANEOUS: Plantar aponeurosis is intact. Sinus tarsi is within normal limits. POST-CONTRAST: There are no abnormal areas of enhancement on the post-contrast images. CONCLUSION: 1. No MR findings for osteomyelitis. Mild subcutaneous edema in the forefoot on the dorsum of the zuleyka t. No tendon rupture or ligamentous injury seen. There is no ankle joint effusion. Taj Oleary MD on July 20, 2017 at 18:06 Board Certified Radiologist. This report was verified electronically.
[2017-07-20 20:00] VITALS: BP 140/87; PULSE 64; RESP 20; TEMP 97.6; O2SAT 99
--- NOTE | 2017-07-20 21:06 | PD.POD ---
Subjective Podiatric Problems Cellulitis right foot Pain score: 3 Past Med/Surg/Social History Past Medical History PFSH Reviewed: Yes Social History Smoking Status: Current Every Day Smoker Objective Vital Signs Vital Signs Date Time Temp Pulse Resp B/P (MAP) Pulse Ox O2 Delivery O2 Flow Rate FiO2 07/20/17 17:57 18 07/20/17 15:50 97.8 55 20 115/73 (87) 100 07/20/17 11:50 97.8 81 20 140/78 (98) 98 07/20/17 07:50 98.7 93 20 149/78 (101) 97 07/20/17 00:00 98.5 79 20 118/55 (76) 96 Coded Allergies: No Known Allergies (Unverified , 07/19/17) Medications and IVs Current Medications Medications (Trade) Dose Ordered Sig/Romelia Route Start Time Stop Time Status Last Admin (KCl) 20 meq DAILY PO 07/19/17 13:15 07/20/17 08:16 (NS Flush) 2 ml UNSCH PRN IV FLUSH 07/19/17 13:15 (NS Flush) 2 ml BID IV FLUSH 07/19/17 21:00 07/20/17 08:16 (Tylenol) 650 mg Q4H PRN PO 07/19/17 13:15 (Zofran Inj) 4 mg Q6H PRN IVP 07/19/17 13:15 (Narcan Inj) 0.4 mg UNSCH PRN IV PUSH 07/19/17 13:15 (Milk Of Magnesia Liq) 30 ml Q12H PRN PO 07/19/17 13:15 Vancomycin HCl 1250 mg/Sodium Chloride 262.5 ml @ 262.5 mls/ hr Q12H IV 07/19/17 23:00 07/20/17 12:54 Pharmacy Profile Note 0 ml @ 0 mls/hr UNSCH OTHER 07/19/17 13:15 Piperacillin Sod/ Tazobactam Sod 100 ml @ 200 mls/hr Q8H IV 07/19/17 18:00 07/20/17 17:57 ([place] 7.5-325 Mg) 1 tab Q4H PRN PO 07/19/17 13:15 07/20/17 16:57 Miscellaneous Information SPECIFIC LAB TO BE DRAWN:VANCO TROUGH DATE... ONCE ONCE .XX 07/21/17 10:45 07/21/17 10:46 Other Results Laboratory Tests Test 07/19/17 10:35 07/19/17 17:00 07/20/17 05:50 07/20/17 07:37 Lactic Acid Level 1.0 mmol/L Blood Urea Nitrogen 9 MG/DL 6 MG/DL Creatinine 1.00 MG/DL 1.00 MG/DL Random Glucose 102 MG/DL 87 MG/DL Total Protein 7.9 GM/DL Albumin 3.8 GM/DL Calcium Level 9.1 MG/DL 8.6 MG/DL Alkaline Phosphatase 88 U/L Aspartate Amino Transf (AST/SGOT) 36 U/L Alanine Aminotransferase (ALT/SGPT) 67 U/L Total Bilirubin 0.9 MG/DL Sodium Level 135 MEQ/L 139 MEQ/L Potassium Level 3.4 MEQ/L 3.8 MEQ/L Chloride Level 100 MEQ/L 105 MEQ/L Carbon Dioxide Level 29.8 MEQ/L 28.5 MEQ/L Urine Color YELLOW Urine Turbidity CLEAR Urine pH 6.0 Urine Specific [place] 1.010 Urine Protein NEG mg/dL Urine Glucose (UA) NEG mg/dL Urine Ketones NEG mg/dL Urine Occult Blood NEG Urine Nitrite NEG Urine Bilirubin NEG Urine Urobilinogen 0.2 MG/DL Urine Leukocyte Esterase NEG Urine WBC 0-2 /hpf Urine Squamous Epithelial Cells 0-5 /hpf Microscopic Urinalysis Comment CULT NOT INDICATED White Blood Count 9.7 TH/MM3 Red Blood Count 4.54 MIL/MM3 Hemoglobin 13.9 GM/DL Hematocrit 41.0 % Mean Corpuscular Volume 90.3 FL Mean Corpuscular Hemoglobin 30.5 PG Mean Corpuscular Hemoglobin Concent 33.8 % Red Cell Distribution Width 12.9 % Platelet Count 266 TH/MM3 Mean Platelet Volume 8.4 FL Neutrophils (%) (Auto) 61.2 % Lymphocytes (%) (Auto) 20.7 % Monocytes (%) (Auto) 14.4 % Eosinophils (%) (Auto) 3.1 % Basophils (%) (Auto) 0.6 % Neutrophils # (Auto) 5.9 TH/MM3 Lymphocytes # (Auto) 2.0 TH/MM3 Monocytes # (Auto) 1.4 TH/MM3 Eosinophils # (Auto) 0.3 TH/MM3 Basophils # (Auto) 0.1 TH/MM3 CBC Comment DIFF FINAL Differential Comment Anion Gap 6 MEQ/L Estimat Glomerular Filtration Rate 95 ML/MIN Objective Remarks Last 72 hours Impressions Foot MRI 07/20/17 0000 Signed Impressions: Service Date/Time: July 17:17 - CONCLUSION: 1. No MR findings for osteomyelitis. Mild subcutaneous edema in the forefoot on the dorsum of the foot. No tendon rupture or ligamentous injury seen. There is no ankle joint effusion. Taj Oleary MD Foot X-Ray 07/19/17948 Signed Impressions: Service Date/Time: Wednesday, July 19, 2017 09:57 - CONCLUSION: Negative examination. J Luis Wilkerson MD Chest X-Ray 07/19/17948 Signed Impressions: Service Date/Time: Wednesday, July 19, 2017 09:57 - CONCLUSION: The lungs are clear. J Luis Wilkerson MD Lower Extremity CT 07/19/17 0000 Signed Impressions: Service Date/Time: Wednesday, July 19, 2017 14:05 - CONCLUSION: 1. No fracture or radiopaque foreign body. 2. Fluid in the tendon sheath in the midportion of the flexor hallux longus. This can be a normal finding although some degree of tendinopathy cannot be excluded. No regional trauma. Urbano Sweet MD Exam-Podiatry Remarks Right foot with pain to plantar lateral aspect of forefoot where puncture wound was present. No purulence noted. Mild edema, minimal erythema locally. Assessment & Plan A/P Cellulitis Right foot No sign of abscess via CT or MRI No indication for surgery at this time Continue IV antibiotics. Recommend compression/elevation/warm compress to right foot Podiatry signing off. Patient will need follow up with his PCP or a provider in his insurance plan upon d/c. Yuriy Jeong DPM Jul 20, 2017 21:06
[2017-07-21] VITALS: BP 122/69; PULSE 49; RESP 20; TEMP 97.2; O2SAT 98
[2017-07-21] MEDS: PIPERACIL-TAZO 4.5 GM PREMIX 100 ML IV SCH ×2 (03:15→10:00)
[2017-07-21 08:00] VITALS: BP 131/62; PULSE 60; RESP 15; TEMP 98; O2SAT 98
[2017-07-21] MEDS: SODIUM CHLORIDE 0.9% FLUSH 10 ML FLUSH IV FLUSH SCH (08:15)
[2017-07-21] MEDS: POTASSIUM CHLORIDE 20 MEQ CONTROLLED RELEASE TAB PO SCH (08:15)
[2017-07-21] MEDS: ACETAMINOPHEN/HYDROcodone 325 MG/7.5 MG TAB PO PRN (08:15)
[2017-07-21 09:23] VITALS: RESP 18
[2017-07-21] MEDS ORDERED: PHARMACY ORDERED LAB ONE (10:45)
[2017-07-21] MEDS ORDERED: AMOX875T2 PO (10:47)
[2017-07-21] MEDS ORDERED: ACET300T2 PO (10:47)
--- NOTE | 2017-07-21 10:47 | HHI.DCPOC ---
Discharge Care Plan Diagnosis: (1) Puncture wound of foot, right (2) Heroin abuse Goals to Promote Your Health * To prevent worsening of your condition and complications * To maintain your health at the optimal level Directions to Meet Your Goals Take your medications as prescribed Follow your dietary instruction Follow activity as directed Keep your appointments as scheduled Take your immunizations and boosters as scheduled If your symptoms worsen call your PCP, if no PCP go to Urgent Care Center or Emergency Room Smoking is Dangerous to Your Health. Avoid second hand smoke Call the 24-hour hour crisis hotline for domestic abuse at Leidy Silva MD Jul 21, 2017 10:47
--- NOTE | 2017-07-21 10:49 | HHI.DS ---
Discharge Summary Admission Date Jul 19, 2017 at 11:30 Discharge Date: Jul 21, 2017 Admitting Diagnosis CELLULITIS OF FOOT (1) Sepsis ICD Code: A41.9 - Sepsis, unspecified organism (2) Hypokalemia ICD Code: E87.6 - Hypokalemia (3) Heroin abuse ICD Code: F11.10 - Opioid abuse, uncomplicated (4) Cellulitis of foot ICD Code: L03.119 - Cellulitis of unspecified part of limb Status: Acute Procedures bedside I&D Brief History - From Admission This patient is a 22-year-old gentleman with a history of intravenous drug use and current history of heroin dependency. Patient comes into the emergency room complaining of right foot pain and swelling. Several days ago he stepped on nail and he thinks it went very deep. He pulled the nail out noticed that his foot began to swell and he had more pain. Came to the emergency room for further evaluation. Patient's pain is quite severe and improved with a lidocaine nerve block which was used for an I&D done in the emergency room. Patient does appear septic and has been admitted to the hospital for further evaluation and treatment CBC/BMP: 07/20/17 0550 07/20/17 0550 Significant Findings Laboratory Tests Test 07/19/17 10:35 07/19/17 17:00 07/20/17 05:50 07/21/17 07:37 White Blood Count 14.4 TH/MM3 (4.0-11.0) Neutrophils (%) (Auto) 72.9 % (16.0-70.0) Monocytes (%) (Auto) 12.3 % (0.0-8.0) 14.4 % (0.0-8.0) Neutrophils # (Auto) 10.4 TH/MM3 (1.8-7.7) Monocytes # (Auto) 1.8 TH/MM3 (0-0.9) 1.4 TH/MM3 (0-0.9) Alanine Aminotransferase (ALT/SGPT) 67 U/L (9-52) Sodium Level 135 MEQ/L (136-145) Potassium Level 3.4 MEQ/L (3.5-5.1) Blood Urea Nitrogen 6 MG/DL (7-18) PE at Discharge Last 72 hours Impressions Foot MRI 07/20/17 0000 Signed Impressions: Service Date/Time: July 17:17 - CONCLUSION: 1. No MR findings for osteomyelitis. Mild subcutaneous edema in the forefoot on the dorsum of the foot. No tendon rupture or ligamentous injury seen. There is no ankle joint effusion. Taj Oleary MD Foot X-Ray 07/19/17948 Signed Impressions: Service Date/Time: Wednesday, July 19, 2017 09:57 - CONCLUSION: Negative examination. J Luis Wilkerson MD Chest X-Ray 07/19/17948 Signed Impressions: Service Date/Time: Wednesday, July 19, 2017 09:57 - CONCLUSION: The lungs are clear. J Luis Wilkerson MD Lower Extremity CT 07/19/17 Signed Impressions: Service Date/Time: Wednesday, July 19, 2017 14:05 - CONCLUSION: 1. No fracture or radiopaque foreign body. 2. Fluid in the tendon sheath in the midportion of the flexor hallux longus. This can be a normal finding although some degree of tendinopathy cannot be excluded. No regional trauma. Urbano Sweet MD Pt update on day of discharge Patient doing much better. Pain is controlled Discharge plans discussed with patient. Sepsis is resolved Hospital Course This patient is a 22-year-old gentleman who stepped on a nail and had some evidence of sepsis related to a puncture wound of his right foot. He did receive a bedside I&D in the emergency room. Cultures were negative. Patient did receive a tetanus as well as empiric IV antibiotics. He is seen by podiatry and recommended for continued medical management. Was discharged home Pt Condition on Discharge: Good Discharge Disposition: Discharge Home Discharge Time: <= 30 minutes Discharge Instructions DIET: Follow Instructions for: As Tolerated, No Restrictions Activities you can perform: Regular-No Restrictions New Medications: Acetaminophen-Codeine (Acetaminophen-Codeine) 300-30 mg Tab 1 TAB PO Q4H PRN for PAIN SCALE 1 TO 10, #10 TAB 0 Refills Amoxicillin-Clavulanate (Amoxicillin-Clavulanate) 875-125 mg Tab 875 MG PO Q12HR for Infection, #14 TAB not for use in CrCl <30 mL/minute Leidy Silva MD Jul 21, 2017 10:49
[2017-07-21] MEDS ORDERED: AMOXICILLIN/CLAVULANATE K 875 MG TAB PO SCH (11:00)
== END 2017-07-21 12:44 | disposition home or self-care (01) | DRG 872 ==
LOC: PHED 09:24 → PHEDA 11:30 → PH3B 12:30
PROVIDERS: ADMIT Hospitalist; ATTEND Hospitalist
PROC: 0H9MXZZ Drainage of Right Foot Skin, External Approach (ICD-10-PCS; principal; 2017-07-19)
DX: A41.9 Sepsis, unspecified organism (principal); S91.331A Puncture wound without foreign body, right foot, initial encounter; L03.115 Cellulitis of right lower limb; E87.6 Hypokalemia; F11.10 Opioid abuse, uncomplicated; F17.200 Nicotine dependence, unspecified, uncomplicated; W45.0XXA Nail entering through skin, initial encounter
CPT/HCPCS: 10061; 71045; 73630; 73701; 73720; 80048; 80053; 81001; 83605; 85025; 86403; 87040; 87070; 87205; 90714; 96365; A9579; J2543; J3370; J7030; J7050; Q9967

== ENCOUNTER 2017-07-26 11:44 | Emergency (ER) | payer MEDICAID ==
[~2017-07-26] VITALS: Ht 172.7 cm; Wt 75.0 kg
[~2017-07-26 11:44] MED LIST: ACET300T2 PO; AMOX875T2 PO
[2017-07-26 11:49] VITALS: BP 128/60; PULSE 82; RESP 16; TEMP 97.7; O2SAT 95
[2017-07-26] MEDS ORDERED: AUGM875T3 PO (12:13)
[2017-07-26] MEDS ORDERED: AMOXICILLIN/CLAVULANATE K 875 MG TAB PO ONE (12:15)
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
== END 2017-07-26 12:40 | disposition home or self-care (01) ==
LOC: PHEFT 11:44
DX: L03.115 Cellulitis of right lower limb (principal); F11.10 Opioid abuse, uncomplicated; F14.10 Cocaine abuse, uncomplicated; F12.10 Cannabis abuse, uncomplicated; Z86.19 Personal history of other infectious and parasitic diseases; Z72.0 Tobacco use
CPT/HCPCS: 99283

== ENCOUNTER 2017-08-01 02:27 | Emergency (ER) | payer MEDICAID ==
[~2017-08-01] VITALS: Ht 165.1 cm; Wt 68.0 kg
[~2017-08-01 02:27] MED LIST changes: +AUGM875T3 PO
[2017-08-01 02:36] VITALS: BP 176/83; PULSE 100; RESP 16; TEMP 98.4; O2SAT 96
[2017-08-01 03:01] VITALS: RESP 16
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
[2017-08-01 03:12] VITALS: BP 163/81; PULSE 88; RESP 16; O2SAT 98
[2017-08-01 03:19] LABS: AUTOMATED NEUTROPHIL # 11.9 TH/MM3 (1.8-7.7); BASOPHIL # 0.1 TH/MM3 (0-0.2); BASOPHIL % 0.4 % (0.0-2.0); HEMATOCRIT 39.6 % (39.0-51.0); HEMOGLOBIN 13.6 GM/DL (13.0-17.0); LYMPH % 5.9 % (9.0-44.0); LYMPHOCYTE # 0.8 TH/MM3 (1.0-4.8); MEAN CELL VOLUME 89.4 FL (80.0-100.0); MEAN CORPUSCULAR HEMOGLOBIN 30.8 PG (27.0-34.0); MEAN CORPUSCULAR HGB CONC 34.5 % (32.0-36.0); MEAN PLATELET VOLUME 7.6 FL (7.0-11.0); MONO % 4.7 % (0.0-8.0); MONOCYTE # 0.6 TH/MM3 (0-0.9); PLATELET COUNT 275 TH/MM3 (150-450); RED BLOOD COUNT 4.43 MIL/MM3 (4.50-5.90); RED CELL DISTRIBUTION WIDTH 12.9 % (11.6-17.2); WHITE BLOOD COUNT 13.4 TH/MM3 (4.0-11.0)
[2017-08-01 03:23] LABS: AMORPHOUS SEDIMENT, URINE RARE; BILIRUBIN, URINE NEG (NEG); BLOOD, URINE NEG (NEG); GLUCOSE,URINE NEG (NEG); KETONE, URINE TRACE mg/dL (NEG); MUCUS URINE FEW /lpf (OCC); NITRITE,URINE NEG (NEG); PH, URINE 6.5 (5.0-8.5); RENAL EPITHELIAL CELLS <1 /hpf; SPERM, URINE OCC; SQUAMOUS EPITHELIAL CELL URINE <1 /hpf (0-5); URINE COLOR YELLOW (YELLW/STRAW); URINE LEUKOCYTE ESTERASE NEG (NEG)
[2017-08-01 03:46] LABS: BICARBONATE 25.4 MEQ/L (21.0-32.0); BLOOD UREA NITROGEN 12 MG/DL (7-18); CALCIUM 8.6 MG/DL (8.5-10.1); CHLORIDE 107 MEQ/L (98-107); CREATININE 0.96 MG/DL (0.60-1.30); GLOMERULAR FILTRATION RATE 100 ML/MIN (>89); GLUCOSE,RANDOM 120 MG/DL (74-106); MAGNESIUM 2.4 MG/DL (1.5-2.5); SODIUM (NA) 140 MEQ/L (136-145)
--- NOTE | 2017-08-01 04:09 | RADRPT ---
EXAM DATE/TIME: 08/01/2017 03:41 [place] COMPARISON: No previous studies available for comparison. INDICATIONS : Possible seizure. RADIATION DOSE: 32.17 CTDIvol (mGy) MEDICAL HISTORY : None SURGICAL HISTORY : None. ENCOUNTER: Initial ACUITY: 1 day PAIN SCALE: 8/10 LOCATION: Bilateral cranial TECHNIQUE: Multiple contiguous axial images were obtained of the head. Using automated exposure control and adj ustment of the mA and/or kV according to patient size, radiation dose was kept as low as reasonably a chievable to obtain optimal diagnostic quality images. DICOM format image data is available electro nically for review and comparison. FINDINGS: CEREBRUM: The ventricles are normal for age. No evidence of midline shift, mass lesion, hemorrhage or acute in farction. No extra-axial fluid collections are seen. POSTERIOR FOSSA: The cerebellum and brainstem are intact. The 4th ventricle is midline. The cerebellopontine angle i s unremarkable. EXTRACRANIAL: The visualized portion of the orbits is intact. SKULL: The calvaria is intact. No evidence of skull fracture. CONCLUSION: Negative noncontrast head CT. Bridger Ortiz MD on August 01, 2017 at 4:07 Board Certified Radiologist. This report was verified electronically.
== END 2017-08-01 04:33 | disposition home or self-care (01) ==
LOC: NEPC 02:27
DX: R41.82 Altered mental status, unspecified (principal); F19.10 Other psychoactive substance abuse, uncomplicated; Z72.0 Tobacco use
CPT/HCPCS: 70450; 80048; 80307; 81001; 83735; 85025

== ENCOUNTER 2017-09-07 23:44 | Emergency (ER) | payer MEDICAID ==
[~2017-09-07] VITALS: Ht 162.6 cm; Wt 70.0 kg
[2017-09-07 23:51] VITALS: BP 140/86; PULSE 85; RESP 16; TEMP 98.9; O2SAT 100
[2017-09-08] MEDS ORDERED: ONDANSETRON ODT 4 MG TAB PO ONE (00:15)
--- NOTE | 2017-09-08 01:47 | PD ---
HPI Chief Complaint: Alcohol/Drug Intoxication Time Seen by Provider: 01:45 Travel History International Travel<30 days: No Contact w/Intl Traveler<30days: No Traveled to known affect area: No History of Present Illness HPI Patient is a 22-year-old male who [place] the beach with [place] he took 3 tabs of ecstasy and drank 3 bottles of " loco . which is an energy alcoholic drink. He comes in nauseous sedated then vomits on himself then he falls asleep denies chest pain no shortness of breath. He accidentally overdosed with combination of medications and ecstasy and alcohol/energy drink.. PFSH Past Medical History Cancer: No Cardiovascular Problems: No Diminished Hearing: No Endocrine: No Gastrointestinal Disorders: No Genitourinary: No Immune Disorder: Yes (HEP C ) Implanted Vascular Access Dvce: No Musculoskeletal: No Neurologic: No Psychiatric: No Reproductive: No Respiratory: No Immunizations Current: Yes Tetanus Vaccination: < 5 Years Past Surgical History Other Surgery: Yes (TO CLOSE LAC TO JAW) Social History Alcohol Use: Yes (occ) Tobacco Use: Yes Substance Use: Yes (HEROINE-DAILY, COCAINE-NEAR DAILY, MARIJUANA - DAILY ) Allergies-Medications (Allergen,Severity, Reaction): Coded Allergies: No Known Allergies (Unverified , 08/01/17) Reported Meds & Prescriptions Reported Meds & Active Scripts Active No Active Prescriptions or Reported Medications Review of Systems ROS Limitations: Intoxication Physical Exam Narrative GENERAL: awake after 4 hrs of observation slight slurring of speech SKIN: Warm and dry. HEAD: Atraumatic. Normocephalic. EYES: Pupils equal and round. No scleral icterus. No injection or drainage. ENT: No nasal bleeding or discharge. Mucous membranes pink and moist. NECK: Trachea midline. No JVD. CARDIOVASCULAR: Regular rate and rhythm. RESPIRATORY: No accessory muscle use. Clear to auscultation. Breath sounds equal bilaterally. GASTROINTESTINAL: Abdomen soft, non-tender, nondistended. Hepatic and splenic margins not palpable. MUSCULOSKELETAL: Extremities without clubbing, cyanosis, or edema. No obvious deformities. NEUROLOGICAL: Awake and alert. No obvious cranial nerve deficits. Motor grossly within normal limits. Five out of 5 muscle strength in the arms and legs. Normal speech. PSYCHIATRIC: Appropriate mood and affect; insight and judgment normal. Data Data Last Documented VS Vital Signs Date Time Temp Pulse Resp B/P (MAP) Pulse Ox O2 Delivery O2 Flow Rate FiO2 09/07/17 23:51 98.9 85 16 140/86 (104) 100 Orders Orders Ondansetron Odt (Zofran Odt) (09/08/17 00:15) MDM Medical Decision Making Medical Screen Exam Complete: Yes Emergency Medical Condition: Yes Differential Diagnosis polysubstance overdose vs acidental vs etoh vs intentional , other Narrative Course observed then ambulatdd without difficulty and safe for discharge safe ride is coming to get him Diagnosis Primary Impression: Drug overdose Qualified Codes: T50.901A - Poisoning by unspecified drugs, medicaments and biological substances, accidental (unintentional), initial encounter Patient Instructions: Adult Overdose (ED), General Instructions Scripts No Active Prescriptions or Reported Meds Disposition: 01 DISCHARGE HOME Condition: Flex Samuels MD September 08, 2017 01:47
== END 2017-09-08 03:04 | disposition home or self-care (01) ==
LOC: NEDAMB 23:44
DX: T50.991A Poisoning by other drugs, medicaments and biological substances, accidental (unintentional), initial encounter (principal); R11.0 Nausea; F11.90 Opioid use, unspecified, uncomplicated; F14.90 Cocaine use, unspecified, uncomplicated; F12.90 Cannabis use, unspecified, uncomplicated; Z86.19 Personal history of other infectious and parasitic diseases; Z72.0 Tobacco use
CPT/HCPCS: 99283

== ENCOUNTER 2017-09-10 01:00 | Emergency (ER) | payer MEDICAID ==
[~2017-09-10] VITALS: Ht 172.7 cm; Wt 68.2 kg
[2017-09-10 01:03] VITALS: BP 157/95; PULSE 101; RESP 22; TEMP 98.7; O2SAT 100
[2017-09-10 01:37] LABS: AUTOMATED NEUTROPHIL # 4.8 TH/MM3 (1.8-7.7); BASOPHIL # 0.1 TH/MM3 (0-0.2); BASOPHIL % 0.8 % (0.0-2.0); EOSINOPHIL # 0.2 TH/MM3 (0-0.4); EOSINOPHIL % 1.8 % (0.0-4.0); HEMATOCRIT 42.5 % (39.0-51.0); HEMOGLOBIN 14.6 GM/DL (13.0-17.0); LYMPHOCYTE # 4.1 TH/MM3 (1.0-4.8); MEAN CELL VOLUME 89.9 FL (80.0-100.0); MEAN CORPUSCULAR HGB CONC 34.5 % (32.0-36.0); MEAN PLATELET VOLUME 7.7 FL (7.0-11.0); MONO % 12.3 % (0.0-8.0); MONOCYTE # 1.3 TH/MM3 (0-0.9); NEUT % 46.1 % (16.0-70.0); PLATELET COUNT 278 TH/MM3 (150-450); RED BLOOD COUNT 4.73 MIL/MM3 (4.50-5.90); RED CELL DISTRIBUTION WIDTH 13.9 % (11.6-17.2); WHITE BLOOD COUNT 10.4 TH/MM3 (4.0-11.0)
[2017-09-10 02:00] LABS: ALBUMIN 4.3 GM/DL (3.4-5.0); ALT (GPT) 93 U/L (9-52); AST (GOT) 40 U/L (15-39); BICARBONATE 29.5 MEQ/L (21.0-32.0); BLOOD UREA NITROGEN 19 MG/DL (7-18); CALCIUM 8.9 MG/DL (8.5-10.1); CHLORIDE 104 MEQ/L (98-107); CREATININE 1.06 MG/DL (0.60-1.30); GLOMERULAR FILTRATION RATE 89 ML/MIN (>89); GLUCOSE,RANDOM 89 MG/DL (74-106); SODIUM (NA) 141 MEQ/L (136-145)
[2017-09-10 02:03] LABS: ALKALINE PHOSPHATASE 82 U/L (45-117); TOTAL BILIRUBIN ADULT 0.4 MG/DL (0.2-1.0); TOTAL PROTEIN 8.2 GM/DL (6.4-8.2)
--- NOTE | 2017-09-10 02:42 | RADRPT ---
EXAM DATE: 09/10/2017 2:35 AM EDT AGE/SEX: 22 years / Male INDICATIONS: Chest pain and shortness of breath- Seizure. CLINICAL DATA: This is the patient's initial encounter. Patient reports that signs and symptoms have been present for 1 day and indicates a pain score of 10/10. MEDICAL/SURGICAL HISTORY: None. None. COMPARISON: [facility], CHEST SINGLE AP, 07/19/2017. . FINDINGS: A single AP view of the chest demonstrates the lungs to be symmetrically aerated without evidence of mass, infiltrate or effusion. The cardiomediastinal contours are unremarkable. Osseous structures a re intact. CONCLUSION: No evidence of acute cardiopulmonary disease. Electronically signed by: Bridger Ortiz MD 09/10/2017 2:40 AM EDT
--- NOTE | 2017-09-10 02:49 | RADRPT ---
EXAM DATE: 09/10/2017 2:30 AM EDT AGE/SEX: 22 years / Male INDICATIONS: Altered mental status. CLINICAL DATA: This is the patient's initial encounter. Patient reports that signs and symptoms have been present for 1 day and indicates a pain score of Nonresponsive. MEDICAL/SURGICAL HISTORY: . Substance abuse None. RADIATION DOSE: 32.72 CTDI (mGy) COMPARISON: [facility] BRAIN [place]/O [place], 08/01/2017. . TECHNIQUE: CT of the head without contrast. Using automated exposure control and adjustment of the mA and/or kV according to patient size, radiation dose was kept as low as reasonably achievable to ob tain optimal diagnostic quality images. FINDINGS: Cerebrum: The ventricles are normal for age. No evidence of midline shift, mass lesion, hemorrhage or acute infarction. No extraaxial fluid collections are seen. Posterior Fossa: The cerebellum and brainstem are intact. The 4th ventricle is midline. The cerebe llopontine angle is unremarkable. Extracranial: The visualized portion of the orbits is intact. Skull: The calvaria is intact. No evidence of skull fracture. CONCLUSION: Negative noncontrast head CT. Electronically signed by: Bridger Ortiz MD 09/10/2017 2:47 AM EDT
--- NOTE | 2017-09-10 04:24 | PD ---
HPI Chief Complaint: Numbness/Tingling Time Seen by Provider: 01:16 Travel History International Travel<30 days: No Contact w/Intl Traveler<30days: No Traveled to known affect area: No History of Present Illness HPI 22-year-old male with complaint "I think I am having a stroke, I think my heart is going to stop" Patient was using synthetic marijuana and developed symptoms shortly after. The history is limited because he is very paranoid and anxious upon arrival. He denies prior episodes or prior drug use [facility] Past Medical History Medical History: Denies Significant Hx Cancer: No Cardiovascular Problems: No Diminished Hearing: No Endocrine: No Gastrointestinal Disorders: No Genitourinary: No Implanted Vascular Access Dvce: No Musculoskeletal: No Neurologic: No Psychiatric: No Reproductive: No Respiratory: No Immunizations Current: Yes Tetanus Vaccination: < 5 Years Influenza Vaccination: No Past Surgical History Other Surgery: Yes (TO CLOSE LAC TO JAW/throat sx) Social History Alcohol Use: Yes (occ) Tobacco Use: Yes Substance Use: Yes (HEROINE-DAILY, COCAINE-NEAR DAILY, MARIJUANA - DAILY ) Allergies-Medications (Allergen,Severity, Reaction): Coded Allergies: No Known Allergies (Unverified , 08/01/17) Reported Meds & Prescriptions Reported Meds & Active Scripts Active No Active Prescriptions or Reported Medications Review of Systems Except as stated in HPI: all other systems reviewed are Neg Neurologic: Positive: Paresthesia Physical Exam Narrative GENERAL: Anxious 22-year-old male who is minimally cooperative SKIN: Focused skin assessment warm/dry. HEAD: Atraumatic. Normocephalic. EYES: Pupils equal and round. No scleral icterus. No injection or drainage. ENT: No nasal bleeding or discharge. Mucous membranes pink and moist. NECK: Trachea midline. CARDIOVASCULAR: Regular rate and rhythm. No murmur appreciated. RESPIRATORY: No accessory muscle use. Clear to auscultation. Breath sounds equal bilaterally. GASTROINTESTINAL: Abdomen soft, non-tender, nondistended. Hepatic and splenic margins not palpable. MUSCULOSKELETAL: No obvious deformities. No clubbing. No cyanosis. No edema. NEUROLOGICAL: Awake and alert. Cranial nerves II through XII are intact, he is moving all extremities with purpose Data Data Last Documented VS Vital Signs Date Time Temp Pulse Resp B/P (MAP) Pulse Ox O2 Delivery O2 Flow Rate FiO2 09/10/17 01:03 98.7 101 22 157/95 (115) 100 Orders Orders Complete Blood Count With Diff (09/10/17 01:21) Comprehensive Metabolic Panel (09/10/17 01:21) Drug Screen, Random Urine (09/10/17 01:21) Ct Brain W/O Iv Contrast(Rout) (09/10/17 ) Chest, Single Ap (09/10/17 ) Creatine Kinase (Cpk) (09/10/17 01:21) Ed Discharge Order (09/10/17 04:24) Electrocardiogram (09/10/17 01:02) Labs Laboratory Tests Test 09/10/17 01:25 White Blood Count 10.4 TH/MM3 Red Blood Count 4.73 MIL/MM3 Hemoglobin 14.6 GM/DL Hematocrit 42.5 % Mean Corpuscular Volume 89.9 FL Mean Corpuscular Hemoglobin 31.0 PG Mean Corpuscular Hemoglobin Concent 34.5 % Red Cell Distribution Width 13.9 % Platelet Count 278 TH/MM3 Mean Platelet Volume 7.7 FL Neutrophils (%) (Auto) 46.1 % Lymphocytes (%) (Auto) 39.0 % Monocytes (%) (Auto) 12.3 % Eosinophils (%) (Auto) 1.8 % Basophils (%) (Auto) 0.8 % Neutrophils # (Auto) 4.8 TH/MM3 Lymphocytes # (Auto) 4.1 TH/MM3 Monocytes # (Auto) 1.3 TH/MM3 Eosinophils # (Auto) 0.2 TH/MM3 Basophils # (Auto) 0.1 TH/MM3 CBC Comment DIFF FINAL Differential Comment Blood Urea Nitrogen 19 MG/DL Creatinine 1.06 MG/DL Random Glucose 89 MG/DL Total Protein 8.2 GM/DL Albumin 4.3 GM/DL Calcium Level 8.9 MG/DL Alkaline Phosphatase 82 U/L Aspartate Amino Transf (AST/SGOT) 40 U/L Alanine Aminotransferase (ALT/SGPT) 93 U/L Total Bilirubin 0.4 MG/DL Sodium Level 141 MEQ/L Potassium Level 3.4 MEQ/L Chloride Level 104 MEQ/L Carbon Dioxide Level 29.5 MEQ/L Anion Gap 8 MEQ/L Estimat Glomerular Filtration Rate 89 ML/MIN Total Creatine Kinase 253 U/L Urine Opiates Screen NEG Urine Barbiturates Screen NEG Urine Amphetamines Screen NEG Urine Benzodiazepines Screen NEG Urine Cocaine Screen NEG Urine Cannabinoids Screen POS MDM Medical Decision Making Medical Screen Exam Complete: Yes Emergency Medical Condition: Yes Differential Diagnosis drug abuse, paranoid behavior Narrative Course Patient was seen and evaluated in the emergency department. After brief observation. He began to realize that he was having a panic attack from using synthetic marijuana and his symptoms disappeared Diagnosis Primary Impression: Synthetic cannabis-induced anxiety disorder Patient Instructions: Anxiety (ED), General Instructions, Normal Exam (ED) Scripts No Active Prescriptions or Reported Meds Disposition: 01 DISCHARGE HOME Condition: Alexsandra Tukr DO September 10, 2017 04:24
--- NOTE | 2017-09-10 13:33 | EKG ---
Date Performed: 09/10/2017 Time Performed: 01:02:48 PTAGE: 22 years EKG: SINUS TACHYCARDIA POSSIBLE LEFT ATRIAL ENLARGEMENT POSSIBLE RIGHT VENTRICULAR CONDUCTION DE LAY ABNORMAL RHYTHM ECG NO PREVIOUS TRACING DOCTOR: Aubrey Mccrary Interpretating Date/Time 09/10/2017 13:31:22
== END 2017-09-10 04:45 | disposition home or self-care (01) ==
LOC: NEPC 01:00
DX: F12.180 Cannabis abuse with cannabis-induced anxiety disorder (principal); Z72.0 Tobacco use
CPT/HCPCS: 70450; 71045; 80053; 80307; 82550; 85025; 93005